=== PATIENT | male | born 1955 | race Caucasian/White ===

== ENCOUNTER 2018-05-01 13:47 | Emergency (ER) | payer SELFPAY ==
[~2018-05-01] VITALS: Ht 170.2 cm; Wt 90.6 kg
[2018-05-01 13:52] VITALS: BP 143/95; PULSE 95; RESP 19; Ht 170.2 cm; Wt 90.6 kg
--- NOTE | 2018-05-01 16:23 | ERD ---
ER Documentation Chief Complaint Chief Complaint PT IN ED FOR EVAL OF HEMMORHOIDS. HX OF FOR 10YEARS. WORSE X 1 WEEK HPI 62 y/o male w/ 10y hx of hemorrhoids,present to the ED c/o localized perianal pruritus and erythema for 1 week. Denies fever,no chills, no diarreha or constipation. ROS All systems reviewed and are negative except as per history of present illness. Medications Home Meds Active Scripts Triamcinolone Acetonide (Triamcinolone Acetonide) 0.1% - 15 Gm Cream.gm., 1 APPLIC TOP BID, #1 TUB Prov:JIN FABIAN MD 05/01/18 Hydroxyzine Hcl* (Hydroxyzine Hcl*) 50 Mg Tablet, 50 MG PO QHS PRN for ITCHING, #10 TAB Prov:JIN FABIAN MD 05/01/18 PMhx/Soc Medical and Surgical Hx: pt denies Medical Hx, pt denies Surgical Hx Hx Alcohol Use: No Hx Tobacco Use: No Smoking Status: Never smoker FmHx Family History: No diabetes, No coronary disease Physical Exam Vitals Vital Signs Date Temp Pulse Resp B/P (MAP) Pulse Ox O2 O2 Flow FiO2 Time Delivery Rate 05/01/18 98.6 95 19 143/95 99 13:52 (111) Physical Exam Const: No acute distress Head: Atraumatic Eyes: Normal Conjunctiva ENT: Normal External Ears, Nose and Mouth. Neck: Full range of motion. No meningismus. Resp: Clear to auscultation bilaterally Cardio: Regular rate and rhythm, no murmurs Abd: Soft, non tender, non distended. Normal bowel sounds Rectal: Moderate perianal erythema, sphincter with a skin tag, no active hemorrhoid disease. No fistula no fluctuance, no tenderness. Skin: No petechiae or rashes Back: No midline or flank tenderness Ext: No cyanosis, or edema Neur: Awake and alert Psych: Normal Mood and Affect Procedures/MDM Differential diagnosis include but not limited to: Internal hemorrhoid, external hemorrhoid, skin tag, lichen, fistula Physical examination and clinical presentation consistent most likely with perianal dermatitis. During the ED course the patient remained stable, no new complaints. Treatment options, results and clinical impression discussed with the patient who agrees with management. The patient is stable to be treated outpatient and will be discharged home, some side effects of prescribed medications were reviewed. The patient was instructed to follow up with the primary care provider in the next 48h. If symptoms persist, worsen or new symptoms develop, then patient should return to the ED immediately. Instructions explained and given directly by me to the patient with acknowledg ment and demonstrated understanding. Disclaimer: Inadvertent spelling and grammatical errors are likely due to EHR/dictation software use and do not reflect on the overall quality of patient care. Also, please note that the electronic time recorded on this note does not necessarily reflect the actual time of the patient encounter. Departure Diagnosis: Primary Impression: External hemorrhoids without complication Additional Impression: Perianal erythema Condition: Stable Additional Instructions: Thank you very much for allowing us to participate in your care. Your health and safety is our top priority at [facility]. Call your primary care doctor TOMORROW for an appointment during the next 2-4 days and bring all the information and medications prescribed. Have prescriptions filled and follow precisely the directions on the label. If the symptoms get worse and your provider is unavailable, return to the Emergency Department immediately. JIN FABIAN MD May 01, 2018 16:23
[2018-05-01] MEDS ORDERED: HYDR50TA15 PO (17:15)
[2018-05-01] MEDS ORDERED: TRIA15CR55 TOP (17:15)
== END 2018-05-01 17:21 | disposition home or self-care (01) ==
LOC: FTE 13:47
DX: K64.4 Residual hemorrhoidal skin tags (principal); K62.89 Other specified diseases of anus and rectum
CPT/HCPCS: 99284